=== PATIENT | male | born 1945 | race Caucasian/White ===

== ENCOUNTER 2022-07-24 14:02 | Outpatient (CLI) | payer MEDICARE, OTHER | END 2022-07-24 14:03 | disposition home or self-care (01) | LOC: CSHCT 14:02 | PROVIDERS: ATTEND Surgery | DX: C18.7 Malignant neoplasm of sigmoid colon (principal) | CPT/HCPCS: 74177; 82565 ==

== ENCOUNTER 2024-05-10 12:22 | Outpatient (CLI) | payer MEDICARE | END 2024-05-10 12:23 | disposition home or self-care (01) | LOC: CSHCT 12:22 | PROVIDERS: ATTEND Internal Medicine Hematology & Oncology | DX: R91.1 Solitary pulmonary nodule (principal); C18.7 Malignant neoplasm of sigmoid colon; C16.2 Malignant neoplasm of body of stomach; R91.8 Other nonspecific abnormal finding of lung field; R59.0 Localized enlarged lymph nodes; K76.9 Liver disease, unspecified | CPT/HCPCS: 71250 ==